=== PATIENT | female | born 1985 | race Two or more races ===

== ENCOUNTER 2020-02-22 17:15 | Inpatient (IN) | payer OTHER ==
[~2020-02-22] VITALS: Ht 162.6 cm; Wt 72.7 kg
--- NOTE | 2020-02-22 17:20 | NUR ---
ED Nurse Note: Pt was brought in by RA 26 d/t multiple drug OD with SI thoughts. Per EMS, pt's friends called in d/t pt's suicidal thoughts. Upon EMS arrival pt was found laying on the bed with multiple empty bottles of med (xanax, lexapro, ambien and bupropion) with unk amount of pills. Pt arrived to ED lethargic; AO&4; VSS, on RA, 132HR on the shelter monitor. Accucheck taken with 141mg/dl result. Pt denies any pmhx aside from depression and anxiety. Safety measures met; will continue monitoring pt.
--- NOTE | 2020-02-22 17:23 | Emergency Room Report ---
History of Present Illness General Chief Complaint: Suicidal Source: Patient Present Illness HPI Patient is a 34-year-old female brought in by EMS after reported overdose. Patient reportedly had been depressed and had taken overdose of pills last night. Reports having alcohol use as well. States that she had taken unknown pills. Patient has multiple prescription bottles which have various dates. Patient was brought in by EMS. She denies any allergies to medications. She denies any nausea or vomiting since the ingestion. Allergies: Coded Allergies: No Known Allergies (Unverified , 02/22/20) COVID-19 Screening COVID-19 risk:Contact w/high r: No Has patient experienced theodore: No COVID-19 Testing performed OVERNIGHT ASSOCIATE: No Patient History Past Medical History: see triage record Last Menstrual Period: na Reviewed Nursing Documentation: PMH: Agreed; PSxH: Agreed Nursing Documentation-PMH Past Medical History: No History, Except For History Of Psychiatric Problem: Yes - depression Review of Systems All Other Systems: negative except mentioned in HPI Physical Exam Vital Signs Date Time Temp Pulse Resp B/P (MAP) Pulse Ox O2 Delivery O2 Flow Rate FiO2 02/22/20 17:13 98.1 122 14 140/96 (111) 97 Room Air Sp02 EP Interpretation: reviewed, normal General Appearance: alert/responsive Head: atraumatic Eyes: PERRL, lids + conjunctiva normal ENT: hearing intact, no angioedema Neck: supple/symm/no masses, no meningismus Respiratory: effort normal, no wheezing, chest symmetrical Cardiovascular: regular rate, rhythm, no edema Cardiovascular #2: 2+ carotid (R), 2+ carotid (L), 2+ dorsalis pedis (R), 2+ dorsalis pedis (L) Gastrointestinal: non-tender, no mass, non-distended, no rebound/guarding, normal bowel sounds Musculoskeletal: gait & station normal, normal ROM, strength & tone normal, non-tender Neurologic: oriented x3, sensory intact, normal speech Skin: no rash, well hydrated Lymphatic: normal inspection Procedures Critical Care Time Critical Care Time Patient had a critical medical condition which untreated could potentially result in life or limb threatening injury. Total critical care time excluding procedures approximately 45 minutes. Medical Decision Making Diagnostic Impression: Primary Impression: Suicide attempt Additional Impressions: Deliberate medication overdose Tachycardia ER Course Patient presented after overdose on unknown substances. Differential diagnosis included was not limited to polysubstance overdose, alcohol intoxication, suicide attempt among others. Because of complexity of patient's case laboratory tests and imaging studies were ordered. Patient was noted to have initial somnolence but is verbal. Initial EKG showed sinus tachycardia with a rate of [address] or T wave changes. There QTC was 424. Poison control was contacted and they recommended multiple repeated EKGs for as a part to monitor for QRS QT prolongation due to possible Wellbutrin overdose. Patient was also noted to have a empty bottle of Lexapro. Patient does have multiple other medication is unknown which when she took however these appear to be old prescriptions. Patient was placed on a mechanical test technician and was started on IV fluids.Patient was noted to have some initial tachycardia which had improvement over time. Dr. Lopez was contacted for management of patient due to panel physician covering for Dr. Lerma Labs Test 02/22/20 17:00 02/22/20 17:30 Sodium Level 140 MMOL/L (136-145) Potassium Level 3.9 MMOL/L (3.5-5.1) Chloride Level 104 MMOL/L (98-107) Carbon Dioxide Level 22 MMOL/L (21-32) Anion Gap 14 mmol/L (5-15) Blood Urea Nitrogen 11 mg/dL (7-18) Creatinine 1.0 MG/DL (0.55-1.30) Estimat Glomerular Filtration Rate > 60 mL/min (>60) Glucose Level 129 MG/DL (74-106) Calcium Level 8.8 MG/DL (8.5-10.1) Troponin I 0.000 ng/mL (0.000-0.056) Urine Color Pale yellow Urine Appearance Slightly cloudy Urine pH 5 (4.5-8.0) Urine Specific [place] 1.025 (1.005-1.035) Urine Protein Negative (NEGATIVE) Urine Glucose (UA) Negative (NEGATIVE) Urine Ketones 3+ (NEGATIVE) Urine Blood 1+ (NEGATIVE) Urine Nitrite Negative (NEGATIVE) Urine Bilirubin Negative (NEGATIVE) Urine Urobilinogen Normal MG/DL (0.0-1.0) Urine Leukocyte Esterase 1+ (NEGATIVE) Urine RBC 2-4 /HPF (0 - 2) Urine WBC 10-15 /HPF (0 - 2) Urine Squamous Epithelial Cells Moderate /LPF (NONE/OCC) Urine Bacteria Moderate /HPF (NONE) Urine HCG, Qualitative Negative (NEGATIVE) Urine Opiates Screen Negative (NEGATIVE) Urine Barbiturates Screen Negative (NEGATIVE) Phencyclidine (PCP) Screen Negative (NEGATIVE) Urine Amphetamines Screen Negative (NEGATIVE) Urine Benzodiazepines Screen Negative (NEGATIVE) Urine Cocaine Screen Negative (NEGATIVE) Urine Marijuana (THC) Screen Negative (NEGATIVE) EKG Diagnostic Results Rate: tachycardiac Rhythm: NSR ST Segments: no acute changes Last Vital Signs Date Time Temp Pulse Resp B/P (MAP) Pulse Ox O2 Delivery O2 Flow Rate FiO2 02/22/20 17:13 98.1 122 14 140/96 (111) 97 Room Air Status: improved Disposition: ADMITTED INPATIENT Condition: Critical Benjamin Hernandez MD Feb 22, 2020 17:22
--- NOTE | 2020-02-22 17:45 | NUR ---
ED Nurse Note: Pt denies any SI thoughts as of now.
[2020-02-22 17:52] VITALS: BP 140/96
[2020-02-22 17:54] LABS: APPEARANCE,URINE SLIGHTLY CLOUDY; BILIRUBIN, URINE NEGATIVE (NEGATIVE); COLOR,URINE PALE YELLOW; GLUCOSE, URINE (UA) NEGATIVE (NEGATIVE); KETONES,URINE 3+ (NEGATIVE); LEUKOCYTE ESTERASE ,URINE 1+ (NEGATIVE); NITRITE,URINE NEGATIVE (NEGATIVE); PH,URINE 5 (4.5-8.0); PROTEIN,URINE NEGATIVE (NEGATIVE); UROBILINOGEN,URINE NORMAL MG/DL (0.0-1.0)
--- NOTE | 2020-02-22 18:00 | NUR ---
ED Nurse Note: Spoke with Grzegorz (brother) and Citlali (friend); per brother, pt took etoh last night as well. All belongings, empty med bottles and 3 med bottles was handed to Grzegorz, charge nurse aware.
[2020-02-22 18:09] LABS: ANION GAP 14 mmol/L (5-15); BLOOD UREA NITROGEN 11 mg/dL (7-18); CALCIUM 8.8 MG/DL (8.5-10.1); CARBON DIOXIDE 22 MMOL/L (21-32); CHLORIDE 104 MMOL/L (98-107); POTASSIUM 3.9 MMOL/L (3.5-5.1); SODIUM 140 MMOL/L (136-145)
[2020-02-22 18:16] LABS: HEMATOCRIT 42.6 % (37.0-47.0); HEMOGLOBIN 13.9 G/DL (12.0-16.0); MEAN CORPUSCULAR VOLUME 88 FL (80-99); PLATELET COUNT 294 K/UL (150-450); RED BLOOD COUNT 4.86 M/UL (4.20-5.40); RED CELL DISTRIBUTION WIDTH 13.2 % (11.6-14.8); WHITE BLOOD COUNT 17.9 K/UL (4.8-10.8)
[2020-02-22 18:17] LABS: EOSINOPHILS % (AUTO) 0.5 % (0.0-3.0); LYMPHOCYTES % (AUTO) 8.6 % (20.0-45.0); MONOCYTES % (AUTO) 3.2 % (1.0-10.0); NEUTROPHILS % (AUTO) 87.2 % (45.0-75.0)
[2020-02-22 18:18] LABS: BASOPHILS % (AUTO) 0.9 % (0.0-2.0)
[2020-02-22 18:24] LABS: ALANINE AMINOTRANSFERASE 39 U/L (12-78); ALBUMIN 4.4 G/DL (3.4-5.0); ALBUMIN/GLOBULIN RATIO 1.3 (1.0-2.7); ALKALINE PHOSPHATASE 67 U/L (46-116); ASPARTATE AMINO TRANSFERASE 29 U/L (15-37); BILIRUBIN,TOTAL 0.6 MG/DL (0.2-1.0)
[2020-02-22] MEDS ORDERED: cefTRIAXone 1 GM in NS 55 ML IVPB ONE (18:30)
[2020-02-22 18:40] VITALS: BP 140/96
--- NOTE | 2020-02-22 18:40 | NUR ---
ED Nurse Note: Established another IV site on RT AC 20G; MRSA/CRE/VRE swab collected and sent to lab.
--- NOTE | 2020-02-22 18:56 | NUR ---
ED Nurse Note: lactic reflex collected; sent to lab.
--- NOTE | 2020-02-22 19:12 | NUR ---
ED Nurse Note: Report received from ANGE POMPA. Patient awake on bed resting
--- NOTE | 2020-02-22 19:12 | NUR ---
ED Nurse Note: Hand off given to Jones RN
[2020-02-22 20:00] VITALS: BP 132/87
--- NOTE | 2020-02-22 20:50 | NUR ---
ED Nurse Note: Patient resting on bed. Drinks provided
[2020-02-22 22:00] VITALS: BP 129/87
--- NOTE | 2020-02-22 22:29 | NUR ---
ED Nurse Note: Spoke to patients brothhilda Lantigua and gave an update on pts condition
[2020-02-23] VITALS (8 sets, daily range): BP systolic 121–148; BP diastolic 85–95
--- NOTE | 2020-02-23 01:52 | NUR ---
ED Nurse Note: Patient assisted to ambulate to the restroom.
--- NOTE | 2020-02-23 04:00 | NUR ---
Per patient can be downgraded to tele. Nursing sup. notified-No sitter available till AM.
--- NOTE | 2020-02-23 07:13 | NUR ---
HAND-OFF: Report given to MICHELLE Gates RN.
--- NOTE | 2020-02-23 07:50 | NUR ---
ED Nurse Note: Report given to Coco POMPA of telemetry unit.
--- NOTE | 2020-02-23 07:55 | NUR ---
ED Nurse Note: Patient transferred to telemetry unit with her belongings. Endorsed pt care to Yenny POMPA.
--- NOTE | 2020-02-23 08:33 | NUR ---
NURSE NOTES: Received report from ER nurse ALETHA Hebert. Pt A/o x4. No s/s of acute distress. Pt came in for suicidal attempt. She states she took a handful of antidepressants. SL on right and left arm, asymptomatic, patent and intact. Skin is intact. Pt has sitter at bedside. Bed in low position, side rails up x2 and call light within reach. Will continue to monitor.
--- NOTE | 2020-02-23 08:39 | History and Physical ---
Alona Leo HEDIS ABSTRACTOR 02/23/20 0839: History of Present Illness General Date patient seen: Feb 23, 2020 Time patient seen: 07:15 Reason for Hospitalization: Suicidal Present Illness HPI 34 years old female with PMH of depression, was brought by international flight attendant after reported overdose. Patient was taken overdose of the pills, likely Lexapro and Wellbutrin last night, previously prescribed to her . Patient had multiple prescription bottles near her with various dates. Upon evaluation patient was tachycardic with heart rate 122, blood pressure was 140/96, pulse oximetry was stable on room air. Urine toxicology screen was negative. Serum salicylates, Tylenol ,and serum alcohol were all negative. Urine test negative. Urinalysis with pyuria , +1 leukocyte esterase and moderate bacteria. Glucose 129. WBC 17.4, stable hemoglobin, hematocrit. Lactic acid 3.4 repeated 3.1 Electrolytes were stable. Troponin negative. EKG revealed sinus tachycardia, no acute ischemic changes. QT interval 424 . Poison Control Center was contacted and recommended repeated EKG as a part to monitor for QT prolongation due to possible Wellbutrin overdose. Patient started on IV hydration and admitted to telemetry floor for further management. Allergies: Coded Allergies: No Known Allergies (Unverified , 02/22/20) COVID-19 Screening Contact w/high risk pt: No Experienced COVID-19 symptoms?: No Medication History Scheduled Escitalopram Oxalate* (Lexapro*), Unknown Dose ORAL DAILY, (Reported) Miscellaneous Medications Bupropion HCl (Bupropion Xl), Unknown Dose ORAL, (Reported) Patient History Healthcare decision maker Resuscitation status full code Advanced Directive on File Review of Systems Constitutional: Reports: weakness Eye: Reports: no symptoms ENT: Reports: no symptoms Respiratory: Reports: no symptoms Cardiovascular: Reports: no symptoms Gastrointestinal: Reports: no symptoms Genitourinary: Reports: no symptoms Musculoskeletal: Reports: no symptoms Skin: Reports: no symptoms Psychiatric: Reports: no symptoms Neurological: Reports: no symptoms Endocrine: Reports: no symptoms Physical Exam General Appearance: WD/WN, other - drowsy, but easily arousable and able to keep up conversation Lines, tubes and drains: peripheral HEENT: normocephalic, atraumatic, anicteric, mucous membranes moist Neck: non-tender, supple Respiratory/Chest: lungs clear, no respiratory distress, no accessory muscle use Cardiovascular/Chest: normal rate Abdomen: normal bowel sounds, non tender, soft Skin Exam: normal pigmentation, warm/dry Neurologic: apparatus cleaner II-XII grossly normal, no motor/sensory deficits, alert, oriented x 3, responsive, depressed affect Musculoskeletal: normal muscle bulk Last 24 Hour Vital Signs Date Time Temp Pulse Resp B/P (MAP) Pulse Ox O2 Delivery O2 Flow Rate FiO2 02/23/20 07:55 98.1 92 20 148/95 97 Room Air 02/23/20 07:42 98.1 92 20 148/95 97 Room Air 02/23/20 06:00 98.1 94 20 141/92 99 Room Air 02/23/20 04:00 98.1 96 20 137/89 99 Room Air 02/23/20 02:00 98.1 106 20 125/92 99 Room Air 02/23/20 00:00 98.1 105 20 121/92 99 Room Air 02/22/20 22:00 98.1 116 24 129/87 99 Room Air 02/22/20 20:00 98.2 120 24 132/87 99 Room Air 02/22/20 18:40 98.1 132 27 140/96 99 Room Air 02/22/20 17:52 122 14 Room Air 02/22/20 17:52 98.1 14 140/96 97 Room Air 02/22/20 17:13 98.1 122 14 140/96 (111) 97 Room Air Laboratory Tests Test 02/22/20 17:00 02/22/20 17:30 02/22/20 18:50 White Blood Count 17.9 K/UL (4.8-10.8) H Red Blood Count 4.86 M/UL (4.20-5.40) Hemoglobin 13.9 G/DL (12.0-16.0) Hematocrit 42.6 % (37.0-47.0) Mean Corpuscular Volume 88 FL (80-99) Mean Corpuscular Hemoglobin 28.5 PG (27.0-31.0) Mean Corpuscular Hemoglobin Concent 32.6 G/DL (32.0-36.0) Red Cell Distribution Width 13.2 % (11.6-14.8) Platelet Count 294 K/UL (150-450) Mean Platelet Volume 7.5 FL (6.5-10.1) Neutrophils (%) (Auto) 87.2 % (45.0-75.0) H Lymphocytes (%) (Auto) 8.6 % (20.0-45.0) L Monocytes (%) (Auto) 3.2 % (1.0-10.0) Eosinophils (%) (Auto) 0.5 % (0.0-3.0) Basophils (%) (Auto) 0.9 % (0.0-2.0) Sodium Level 140 MMOL/L (136-145) Potassium Level 3.9 MMOL/L (3.5-5.1) Chloride Level 104 MMOL/L (98-107) Carbon Dioxide Level 22 MMOL/L (21-32) Anion Gap 14 mmol/L (5-15) Blood Urea Nitrogen 11 mg/dL (7-18) Creatinine 1.0 MG/DL (0.55-1.30) Estimat Glomerular Filtration Rate > 60 mL/min (>60) Glucose Level 129 MG/DL (74-106) H Lactic Acid Level 3.40 mmol/L (0.4-2.0) H 3.10 mmol/L (0.66-2.22) H Calcium Level 8.8 MG/DL (8.5-10.1) Total Bilirubin 0.6 MG/DL (0.2-1.0) Aspartate Amino Transf (AST/SGOT) 29 U/L (15-37) Alanine Aminotransferase (ALT/SGPT) 39 U/L (12-78) Alkaline Phosphatase 67 U/L (46-116) Troponin I 0.000 ng/mL (0.000-0.056) Total Protein 7.9 G/DL (6.4-8.2) Albumin 4.4 G/DL (3.4-5.0) Globulin 3.5 g/dL Albumin/Globulin Ratio 1.3 (1.0-2.7) Thyroid Stimulating Hormone (TSH) 0.975 uiU/mL (0.358-3.740) Salicylates Level 0.9 ug/mL (2.8-20) L Acetaminophen Level < 2 MCG/ML (10-30) L Serum Alcohol < 3 mg/dL Urine Color Pale yellow Urine Appearance Slightly cloudy Urine pH 5 (4.5-8.0) Urine Specific [place] 1.025 (1.005-1.035) Urine Protein Negative (NEGATIVE) Urine Glucose (UA) Negative (NEGATIVE) Urine Ketones 3+ (NEGATIVE) H Urine Blood 1+ (NEGATIVE) H Urine Nitrite Negative (NEGATIVE) Urine Bilirubin Negative (NEGATIVE) Urine Urobilinogen Normal MG/DL (0.0-1.0) Urine Leukocyte Esterase 1+ (NEGATIVE) H Urine RBC 2-4 /HPF (0 - 2) H Urine WBC 10-15 /HPF (0 - 2) H Urine Squamous Epithelial Cells Moderate /LPF (NONE/OCC) H Urine Bacteria Moderate /HPF (NONE) H Urine HCG, Qualitative Negative (NEGATIVE) Urine Opiates Screen Negative (NEGATIVE) Urine Barbiturates Screen Negative (NEGATIVE) Phencyclidine (PCP) Screen Negative (NEGATIVE) Urine Amphetamines Screen Negative (NEGATIVE) Urine Benzodiazepines Screen Negative (NEGATIVE) Urine Cocaine Screen Negative (NEGATIVE) Urine Marijuana (THC) Screen Negative (NEGATIVE) Microbiology Date/Time Source Procedure Growth Status 02/22/20 18:25 Rectum Received 02/22/20 17:25 Nasopharynx SARS-CoV-2 RdRp Gene Assay - Final Complete Height (Feet): 5 Height (Inches): 5.00 Weight (Pounds): 170 Assessment/Plan Assessment/Plan: ASSESSMENT Suicide attempt Depression Polysubstance abuse with overdose Acute toxic encephalopathy secondary to polysubstance use resolving Lactic acidosis Leukocytosis Probable UTI PLAN OF CARE observe on tele for any ECG changes and QT interval mental status slowly clearing gentle IV hydration empiric abx fup with UCX psych eval case discussed and evaluated by supervising physician Rizwan Lopez MD 02/23/20 1340: History of Present Illness General Reason for Hospitalization: Suicidal Present Illness Allergies: Coded Allergies: No Known Allergies (Unverified , 02/22/20) Medication History Scheduled Escitalopram Oxalate* (Lexapro*), Unknown Dose ORAL DAILY, (Reported) Miscellaneous Medications Bupropion HCl (Bupropion Xl), Unknown Dose ORAL, (Reported) Assessment/Plan Assessment/Plan: Patient seen and examined with HEDIS ABSTRACTOR and I agree with the above formulated asses sment and plan. Alona Leo NP Feb 23, 2020 08:39 Rizwan Lopez MD Feb 23, 2020 13:40
[2020-02-23 10:52] LABS: ANION GAP 8 mmol/L (5-15); BLOOD UREA NITROGEN 11 mg/dL (7-18); CALCIUM 8.6 MG/DL (8.5-10.1); CARBON DIOXIDE 26 MMOL/L (21-32); CHLORIDE 104 MMOL/L (98-107); CREATININE 0.8 MG/DL (0.55-1.30); POTASSIUM 3.5 MMOL/L (3.5-5.1); SODIUM 138 MMOL/L (136-145)
[2020-02-23 10:57] LABS: BASOPHILS % (AUTO) 1.3 % (0.0-2.0); EOSINOPHILS % (AUTO) 0.2 % (0.0-3.0); HEMATOCRIT 38.2 % (37.0-47.0); HEMOGLOBIN 12.9 G/DL (12.0-16.0); LYMPHOCYTES % (AUTO) 12.5 % (20.0-45.0); MEAN CORPUSCULAR VOLUME 83 FL (80-99); MONOCYTES % (AUTO) 5.3 % (1.0-10.0); NEUTROPHILS % (AUTO) 80.7 % (45.0-75.0); PLATELET COUNT 269 K/UL (150-450); RED BLOOD COUNT 4.58 M/UL (4.20-5.40); RED CELL DISTRIBUTION WIDTH 12.6 % (11.6-14.8); WHITE BLOOD COUNT 13.6 K/UL (4.8-10.8)
[2020-02-23] MEDS ORDERED: LEXAPRO10 MG ORAL (12:57)
[2020-02-23] MEDS ORDERED: WELLBUTRIN XL150 M3 ORAL (12:57)
--- NOTE | 2020-02-23 17:17 | Diagnostic Imaging Report ---
EXAM: XR Chest, 1 View CLINICAL HISTORY: COUGH TECHNIQUE: Frontal view of the chest. COMPARISON: None FINDINGS: Hardware: None. Lungs/pleura: Normal. No focal consolidation. No pleural effusion or pneumothorax. Heart/mediastinum: Normal. No cardiomegaly. Soft tissues: Unremarkable. Bones: No acute fracture. Upper abdomen: Normal. IMPRESSION: No acute disease identified.
[2020-02-23] MEDS ORDERED: cefTRIAXone 1 GM in D5W 55 ML IVPB SCH (18:00)
--- NOTE | 2020-02-23 19:20 | NUR ---
NURSE NOTES: RECEIVED REPORT FROM ALETHA COCHRAN. AAOX4, VERBALLY RESPONSIVE AND ABLE TO MAKE NEEDS KNOWN. NO COMPLAINTS OF PAIN OR DISCOMFORT AT THIS TIME. BREATHING IS EVEN AND UNLABORED ON ROOM AIR, NO S/SX OF DISTRESS. IV SITE ON RAC PATENT, INTACT, ASYMPTOMATIC, WITH IVF RUNNING PRESCRIBED; IV SITE LAC PATENT, INTACT, ASYMPTOMATIC, AND SALINE-LOCKED. PATIENT HAS SITTER AT BEDSIDE. BED LOCKED AND IN LOWEST POSITION, SIDERAILS UP X 2. CALL LIGHT WITHIN REACH, WILL CONTINUE TO MONITOR.
--- NOTE | 2020-02-23 19:25 | NUR ---
NURSE HAND-OFF REPORT: Important Events on Shift:[] Patient Status: [] Diet: [] Pending Orders: [] Pending Results/Labs:[] Pending MD notification:[] Latest Vital Signs: Temperature 98.4 , Pulse 96 , B/P 141 /94 , Respiratory Rate 20 , O2 SAT 97 , Room Air, O2 Flow Rate . Vital Sign Comment: [] EKG Rhythm: Sinus Rhythm Rhythm change?: N MD Notified?: - MD Response: Latest [place] Fall Score: 35 Fall Risk: Medium Risk Safety Measures: Call light Within Reach, Bed Alarm Zone 1, Side Rails Side Rails x2, Bed position Low and Locked. Fall Precautions: Report given to [ALETHA Mchugh].
[2020-02-24] VITALS: BP 134/86
--- NOTE | 2020-02-24 03:00 | NUR ---
NURSE NOTES: PATIENT ASLEEP, APPEARS CALM AND COMFORTABLE. SITTER AT BEDSIDE. WILL CONTINUE TO MONITOR.
[2020-02-24 04:00] VITALS: BP 135/92
--- NOTE | 2020-02-24 07:35 | NUR ---
NURSE HAND-OFF REPORT: Important Events on Shift: NO SI THROUGHOUT SHIFT, SITTER AT BEDSIDE, SW CONSULT FOR TODAY Patient Status: STABLE Diet: REGULAR Pending Orders: N/A Pending Results/Labs:N/A Pending MD notification:N/A Latest Vital Signs: Temperature 98.1 , Pulse 85 , B/P 135 /92 , Respiratory Rate 18 , O2 SAT 96 , Room Air, O2 Flow Rate . Vital Sign Comment: STABLE EKG Rhythm: Sinus Rhythm Rhythm change?: N MD Notified?: - MD Response: Latest [place] Fall Score: 35 Fall Risk: Medium Risk Safety Measures: Call light Within Reach, Bed Alarm Zone 1, Side Rails Side Rails x2, Bed position Low and Locked. Fall Precautions: Yellow Socks Yellow Gown Door Sign Patient Fall Education Report given to ALETHA ALBRIGHT.
--- NOTE | 2020-02-24 07:44 | NUR ---
NURSE NOTES: received report from ALETHA dent. pt is AOx4, sitting up in bed and stable on RA. Pt reports feeling ok, no suicidal ideation or intent to harm self or others at this time. Pt bed low and locked, call light in reach and bed alarm on. no s/s or complaint of distress at this time. Pt has a sitter beside, Nereyda.
[2020-02-24 08:00] VITALS: BP 135/95
--- NOTE | 2020-02-24 09:53 | Psych Consult Progress Note ---
Psychiatry Progress Note Psychiatry Progress Note Medications Current Medications Medications (Trade) Dose Ordered Sig/Isael Route PRN Reason Start Time Stop Time Status Last Admin Dose Admin Ceftriaxone Sodium 1 gm/ Dextrose 55 ml @ 110 mls/hr Q24H IVPB 02/23/20 18:00 03/01/20 17:59 02/23/20 17:27 Dextrose (Dextrose 50%) 25 ml Q30M PRN IV Hypoglycemia 02/23/20 08:45 05/23/20 08:44 Dextrose (Dextrose 50%) 50 ml Q30M PRN IV Hypoglycemia 02/23/20 08:45 05/23/20 08:44 Sodium Chloride 1,000 ml @ 50 mls/hr Q20H IV 02/23/20 08:45 03/24/20 08:44 02/24/20 04:54 Allergies: Coded Allergies: No Known Allergies (Unverified , 02/22/20) Objective Data Height (Feet): 5 Height (Inches): 4.00 Weight (Pounds): 169 General Appearance: WD/WN, other - drowsy, but easily arousable and able to keep up conversation Assessment/Plan Status: stable Assessment/Plan: MDD The pt is cleared to be discharged the pt is not at immanent dts/dto left a for her psych MD Dr. Hansen who has not seen her since lock down and just prescribed her meds the pt would like to follow up with her current psychiatrist Olman Eason MD Feb 24, 2020 09:52
--- NOTE | 2020-02-24 10:31 | NUR ---
Social Work This SW received a consult due to possible suicidal ideations, taking too many medications. This SW spoke with Dr. Eason who cleared patient for discharge. This SW met with patient who also denied any suicidal ideations, was not forthcoming into why she has been feeling more depressed/suicidal lately, denying any further stressors at this time. Patient plans to follow up with outpatient Psychiatry after discharge, per Dr. Eason. This SW offered additional mental health clinics and counseling resources, while patient declined this at this time. Patient lives alone, but stating her brother and best friend are supportive as needed. This SW did recommend contacting the mental Health crisis line (number provided), as needed. Patient denied any SI with this SW, stating she is feeling better. Patients brother plans to transport patient to home today, will be with patient upon discharge for support.
--- NOTE | 2020-02-24 10:36 | Pulmonology Progress Note ---
Alona Leo CREDIT PRODUCT ANALYST 02/24/20 1036: Subjective ROS Limited/Unobtainable: No Allergies: Coded Allergies: No Known Allergies (Unverified , 02/22/20) Subjective awake and alert, denies CP SOB, dizziness, palpitations seen by psych earlier denies SI Objective Last 24 Hour Vital Signs Date Time Temp Pulse Resp B/P (MAP) Pulse Ox O2 Delivery O2 Flow Rate FiO2 02/24/20 09:00 Room Air 02/24/20 08:00 98.1 79 20 135/95 (108) 97 02/24/20 08:00 81 02/24/20 04:00 69 02/24/20 04:00 98.1 85 18 135/92 (106) 96 02/24/20 00:00 98.1 87 18 134/86 (102) 99 02/24/20 00:00 91 02/23/20 21:00 Room Air 02/23/20 20:00 79 02/23/20 20:00 97.9 83 18 136/91 (106) 99 02/23/20 16:03 98.4 96 20 141/94 (110) 02/23/20 16:00 79 02/23/20 12:02 98.1 96 18 136/85 (102) 02/23/20 12:00 91 02/23/20 10:49 Room Air Intake and Output 02/23/20 02/24/20 19:00 07:00 Intake Total 750 ml 795 ml Balance 750 ml 795 ml Intake Oral 300 ml 240 ml IV Total 450 ml 555 ml # Voids 2 1 Objective General Appearance: WD/WN, other - drowsy, but easily arousable and able to keep up conversation Lines, tubes and drains: peripheral HEENT: normocephalic, atraumatic, anicteric, mucous membranes moist Neck: non-tender, supple Respiratory/Chest: lungs clear, no respiratory distress, no accessory muscle use Cardiovascular/Chest: normal rate Abdomen: normal bowel sounds, non tender, soft Skin Exam: normal pigmentation, warm/dry 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 Complete 02/22/20 17:30 Urine,Clean Catch Urine Culture - Final Strep Agalactiae Group B Complete 02/22/20 17:25 Nasopharynx SARS-CoV-2 RdRp Gene Assay - Final Complete Current Medications Medications (Trade) Dose Ordered Sig/Isael Route PRN Reason Start Time Stop Time Status Last Admin Dose Admin Ceftriaxone Sodium 1 gm/ Dextrose 55 ml @ 110 mls/hr Q24H IVPB 02/23/20 18:00 03/01/20 17:59 02/23/20 17:27 Dextrose (Dextrose 50%) 25 ml Q30M PRN IV Hypoglycemia 02/23/20 08:45 05/23/20 08:44 Dextrose (Dextrose 50%) 50 ml Q30M PRN IV Hypoglycemia 02/23/20 08:45 05/23/20 08:44 Sodium Chloride 1,000 ml @ 50 mls/hr Q20H IV 02/23/20 08:45 03/24/20 08:44 02/24/20 04:54 Assessment/Plan Assessment/Plan ASSESSMENT Suicide attempt Depression Polysubstance abuse with overdose Acute toxic encephalopathy secondary to polysubstance use - resolved Lactic acidosis -resolved Leukocytosis -improved UTI PLAN OF CARE on tele stable QRS, no QI prolongation mental status back to [place], awake and alert gentle IV hydration empiric abx leuk likely due to UTI, trending down, remains afebrile fup with UCX + E coli Keflex on dc psych eval appreciated, cleared for dc OP fup with her psychiatrist case discussed and evaluated by supervising physician Rizwan Lopez MD 02/24/20 1134: Subjective Allergies: Coded Allergies: No Known Allergies (Unverified , 02/22/20) Assessment/Plan Assessment/Plan Patient seen and examined with CREDIT PRODUCT ANALYST and the above formulated assessment and plan. Alona Leo NP Feb 24, 2020 10:36 Rizwan Lopez MD Feb 24, 2020 11:34
[2020-02-24] MEDS ORDERED: CEPHALEXIN500 MG ORAL (10:37)
--- NOTE | 2020-02-24 11:21 | NUR ---
NURSE NOTES: Pt both IVs removed, tele monitor removed, and ID band removed. Pt gathered her own belongings of one bag, signed belonging list. Pt understands instructions and has received pt instruction. SMALL PRODUCTS ASSEMBLER esmer came and spoke to her as well regarding the UTI. Pt understands education. Pt reports feeling ok and no suicidal ideation at this time of discharge. walked Pt down to the front where we were met with her mode of transportation home with her brother. Pt discharged without incident.
--- NOTE | 2020-02-24 17:44 | NUR ---
INSURANCE CLINICALS/DC INSTRUCTIONS FAXED TO [facility] HERNAN[facility] [phone] CM: Sherry SOLIZ [phone]
--- NOTE | 2020-02-25 02:00 | Consultation ---
DATE OF CONSULTATION: 02/24/2020 CONSULTING PHYSICIAN: Olman Eason MD. HISTORY OF PRESENT ILLNESS: This is a 34-year-old female with a history of depression, anxiety who has been admitted to the hospital after a suicide attempt. She apparently overdosed on her Wellbutrin and Lexapro and then called her friend and stated that she just took an overdose. The police were called and the patient was brought into the emergency room at [facility]. Patient stated that she has been seeing her psychiatrist in the past. Since the lock-down due to COVID, she has been using her psychiatrist and the psychiatrist has been only refilling her medication. She denied seeing the psychiatrist virtually. Patient now presented with QT interval prolongation due to Lexapro overdose. Patient stated she had a good support system. She is employed and she is not currently suicidal. She appeared depressed; however, she did not did not have any anxiety and no psychotic symptoms. PAST PSYCHIATRIC HISTORY: Denied any suicide attempts. Denied psychiatric hospitalization. She has been seeing the psychiatrist for several years and is on Wellbutrin and Lexapro. No suicide attempts in the past. PAST MEDICAL HISTORY: Nonsignificant. ALLERGIES: No known drug allergies. SUBSTANCE ABUSE HISTORY: She denies any illicit drug use or alcohol. Her urine toxicology is negative for any drugs or alcohol. MENTAL STATUS EXAMINATION: Patient is alert, oriented times self, place, situation, and date. Mood is depressed. Affect is constricted, congruent with mood. Thought process is linear and goal oriented. Thought content, there is no suicidal or homicidal ideation. Cognition is intact. Insight and judgment is fair. ASSESSMENT: [place] I Major depressive disorder. [place] II Rule out borderline personality disorder. [place] III None. [place] IV Low. [place] V 60. PLAN: 1. Patient is not in an imminent danger to self or others. 2. I called the psychiatrist and left a message to visit the patient JALIL. 3. Patient was given a referral to . 4. Provide the patient with reality orientation and supportive therapy. Olman Eason M.D. DR: DAVID JOB#: [id number] CC:
--- NOTE | 2020-02-25 14:29 | Discharge Summary ---
Discharge Summary Discharge Summary _ DATE OF ADMISSION: 02/22/2020 DATE OF DISCHARGE: 02/24/2020 DISCHARGED BY: Dr. Lopez REASON FOR ADMISSION: 34 years old female with PMH of depression, was brought by paramedics after reported overdose. Patient apparently took overdose of the pills, likely Lexapro and Wellbutrin last night, previously prescribed to her . Patient had multiple prescription bottles near her with various dates. Upon evaluation patient was tachycardic with heart rate 122, blood pressure was 140/96, pulse oximetry was stable on room air. Urine toxicology screen was negative. Serum salicylates, Tylenol , and serum alcohol were all negative. Urine test negative. Urinalysis with pyuria , +1 leukocyte esterase and moderate bacteria. Glucose 129. WBC 17.4, stable hemoglobin and hematocrit. Lactic acid 3.4 , repeated 3.1 Electrolytes were stable. Troponin negative. EKG revealed sinus tachycardia, no acute ischemic changes. QT interval 424 . [facility] was contacted and recommended to repeat EKG as a part to monitor for QT prolongation due to possible Wellbutrin overdose. Patient started on IV hydration and admitted to telemetry floor for further management. CONSULTANTS: psychiatrist Dr. boucher [facility]SE: Patient admitted to telemetry floor. Patient received gentle IV hydration and started on empiric antibiotics . Stable QRS , no QT prolongation . Mental status next day back to baseline . Patient was awake and alert. Psychiatric evaluation was requested. Urine culture revealed E. coli. Teofilo was on IV antibitoic in the Patient prescribed oral Keflex on discharge to complete the course as outpatient. Patient remained glucose afebrile leukocytosis trending down likely was due to UTI and partially probably reactive. Psychiatry seen and evaluated patient. Per psychiatrist patient had major depressive disorder psychiatrist recommended to follow-up as outpatient. At this time patient clinically stabilized and was ready for discharge home FINAL DIAGNOSES: Suicide attempt Major depressive disorder Polysubstance overdose ( likely Lexapro and Wellbutrin) Acute toxic encephalopathy secondary to polysubstance overdose - resolved Lactic acidosis -resolved Leukocytosis -improved UTI DISCHARGE MEDICATIONS: See Medication Reconciliation list. DISCHARGE INSTRUCTIONS: Teofilo was discharged home. Follow-up with outpatient psychiatrist in 1 week. Alona Leo NP Feb 25, 2020 14:29
--- NOTE | 2020-02-25 17:08 | Cardiology Report ---
APPROVED REPORT EKG Measurement Heart [id number] <Conclusion> Sinus tachycardia Possible Left atrial enlargement Nonspecific T wave abnormality Abnormal ECG
== END 2020-02-24 11:45 | disposition home or self-care (01) | DRG 917 ==
LOC: EDBD 17:15 → EMR 17:26 → EDBEDREQSVC 18:12 → EDBEDREQ 18:13 → 2E 18:19 → EDBEDREQSVC 02-23 04:01 → EDBEDREQ 02-23 04:01
DX: T43.222A Poisoning by selective serotonin reuptake inhibitors, intentional self-harm, initial encounter (principal); G92 Toxic encephalopathy; N39.0 Urinary tract infection, site not specified; E87.2 Acidosis; T43.292A Poisoning by other antidepressants, intentional self-harm, initial encounter; T14.91XA Suicide attempt, initial encounter; R00.0 Tachycardia, unspecified; F32.9 Major depressive disorder, single episode, unspecified; F19.10 Other psychoactive substance abuse, uncomplicated
CPT/HCPCS: 36415; 71045; 80048; 80053; 80307; 81003; 81025; 83605; 84443; 84484; 85025; 86850; 86900; 86901; 87081; 87086; 93005; 96361; 96365; 99291; G0480; J7030; U0002